=== PATIENT | male | born 1990 | race Hispanic/Latino ===

== ENCOUNTER 2018-02-19 11:14 | Emergency (ER) | payer SELFPAY ==
[2018-02-19] MEDS ORDERED: ISOVUE-370 76%-LOCM 1 ML ONE (11:32)
[2018-02-19 12:05] LABS: Bilirubin Negative (Negative); Blood, Urine Negative (Negative); Clarity CLEAR (Clear); Glucose, Urine (Dipstick) Negative (Negative); Leukocyte Negative (Negative); Nitrite Negative (Negative); Protein, Urine (Dipstick) Trace mg/dL (Neg-Trace); Specific Gravity, Urine 1.029 (1.002-1.036); Urobilinogen 0.2 mg/dL (0.2-1.0)
[2018-02-19 12:38] LABS: #Eosinphils 0.1 thou/uL (0.0-0.7); #Lymphocytes 1.8 thou/uL (1.20-3.40); #Monocytes 0.6 thou/uL (0.11-0.59); #Neutrophils 4.7 thou/uL (1.40-6.50); %Basophils 0.3 % (0.0-1.0); %Lymphocytes 24.9 % (21.0-51.0); %Monocytes 8.1 % (0.0-10.0); %Neutrophils 64.7 % (42.0-75.0); Hemoglobin 15.3 g/dL (14.0-18.0); Mean Corpuscular HGB CONC 32.7 g/dL (32.0-36.0); Mean Corpuscular Hemoglobin 29.2 pg (27.0-31.0); Mean Corpuscular Volume 89.3 fL (78.0-98.0); Mean Platelet Volume 8.5 fL (7.4-10.4); Platelet Count 180 thou/uL (130-400); RBC Distribution Width 10.9 % (11.5-14.5); Red Blood Cell (RBC) Count 5.24 mill/uL (4.70-6.10); White Blood Cell (WBC) Count 7.3 thou/uL (4.8-10.8)
[2018-02-19 12:45] LABS: ALT (SGPT) 74 U/L (8-55); AST (SGOT) 40 U/L (5-34); Albumin 4.8 g/dL (3.5-5.0); Alkaline Phosphatase 99 U/L (40-150); Anion Gap 15 mmol/L (10-20); BUN (Urea Nitrogen) 21 mg/dL (8.9-20.6); Calc. Creatinine Clearance 0 mL/min (70-130); Calcium 9.8 mg/dL (7.8-10.44); Carbon Dioxide 23 mmol/L (22-29); Chloride 99 mmol/L (98-107); Estimated GFR-MDRD Greater than 90; Globulin 3.5 g/dL (2.4-3.5); Glucose 75 mg/dL (70-105); Lipase 18 U/L (8-78); Potassium 3.6 mmol/L (3.5-5.1); Protein, Total 8.3 g/dL (6.0-8.3); Sodium 133 mmol/L (136-145)
--- NOTE | 2018-02-19 18:48 | CT ---
CT ABDOMEN AND PELVIS WITH CONTRAST: 02/19/18 HISTORY: Abdominal pain. COMPARISON: None. FINDINGS: Lung bases are clear. no pericardial effusion. Likely diffuse hepatic steatosis. No dilated loops of large or large or small bowel. No free intraperitoneal gas or fluid. The appendix is visualized and i s normal. The aortoiliac contour is nonaneurysmal. No retroperitoneal adenopathy. No hydronephrosis. Spleen is unremarkable as well as the pancreas. Mild degenerative changes of both hips. Lumbosacral transitional vertebrae with abnormal articulation . Enlarged right L5 transverse process with the sacrum. IMPRESSION: No acute inflammatory process in the abdomen or pelvis. POS: [facility]
== END 2018-02-19 18:10 | disposition home or self-care (01) ==
LOC: ERS 11:14
DX: R10.30 Lower abdominal pain, unspecified (principal)
CPT/HCPCS: 36415; 74177; 80053; 81003; 83690; 85025

== ENCOUNTER 2019-02-17 23:47 | Inpatient (IN) | payer OTHER, SELFPAY ==
[2019-02-18 00:14] LABS: #Basophils 0.1 thou/uL (0.0-0.2); #Eosinphils 0.2 thou/uL (0.0-0.7); #Monocytes 0.6 thou/uL (0.11-0.59); #Neutrophils 7.3 thou/uL (1.40-6.50); %Basophils 0.7 % (0.0-1.0); %Eosinophils 1.8 % (0.0-10.0); %Lymphocytes 19.7 % (21.0-51.0); %Monocytes 6.1 % (0.0-10.0); %Neutrophils 71.8 % (42.0-75.0); Hemoglobin 15.1 g/dL (14.0-18.0); Mean Corpuscular HGB CONC 36.1 g/dL (32.0-36.0); Mean Corpuscular Hemoglobin 32.4 pg (27.0-31.0); Mean Corpuscular Volume 89.7 fL (78.0-98.0); Platelet Count 185 thou/uL (130-400); Red Blood Cell (RBC) Count 4.65 mill/uL (4.70-6.10); White Blood Cell (WBC) Count 10.2 thou/uL (4.8-10.8)
[2019-02-18 00:34] LABS: ALT (SGPT) 40 U/L (8-55); AST (SGOT) 24 U/L (5-34); Albumin 4.6 g/dL (3.5-5.0); Alkaline Phosphatase 89 U/L (40-150); Anion Gap 13 mmol/L (10-20); BUN (Urea Nitrogen) 17 mg/dL (8.9-20.6); Bilirubin, Total 0.5 mg/dL (0.2-1.2); Calc. Creatinine Clearance 0 mL/min (70-130); Calcium 9.8 mg/dL (7.8-10.44); Carbon Dioxide 26 mmol/L (22-29); Chloride 99 mmol/L (98-107); Estimated GFR-MDRD Greater than 90; Glucose 101 mg/dL (70-105); Lipase 10 U/L (8-78); Potassium 3.6 mmol/L (3.5-5.1); Protein, Total 7.6 g/dL (6.0-8.3); Sodium 134 mmol/L (136-145)
[2019-02-18 00:39] LABS: Bilirubin Negative (Negative); Blood, Urine Negative (Negative); Clarity Clear (Clear); Glucose, Urine (Dipstick) Normal (Negative); Leukocyte Negative Leu/uL (Negative); Nitrite Negative (Negative); Protein, Urine (Dipstick) Negative (Neg-Trace); Urobilinogen Normal mg/dL (Less than 2)
[2019-02-18] MEDS ORDERED: Ondansetron PF 4 MG/2 ML Vial ONE (03:00)
[2019-02-18] MEDS ORDERED: Lidocaine Viscous Sol 2% 15 ml UD Cup ONE (04:23)
[2019-02-18] MEDS ORDERED: Mag-Al 1200 mg/1200 mg/30 ML UDCUP ONE (04:23)
[2019-02-18] MEDS ORDERED: Ketorolac Tromethamine 30 MG/ML VIAL ONE (04:26)
--- NOTE | 2019-02-18 07:38 | HP ---
HISTORY OF PRESENT ILLNESS: Pop Mcguire is a 28-year-old male, who works in construction, , has 3 children, who presents with 36-hour to 40-hour history of epigastric left upper quadrant pain, nausea, and vomiting. He has been seen in the emergency room, evaluated with a white count of 10 and hemoglobin 15. Basic metabolic profile normal, except for a sodium of 134. CAT scan obtained revealing changes consistent with a bowel obstruction, possible internal hernia. He is still having pain. NG tube had been placed without 400 output. Plan is for diagnostic laparoscopy, possible laparotomy is indicated. Power Driven Brush Maker phone used. Risks and benefits discussed. ALLERGIES: NONE. TOBACCO: None. ALCOHOL: Socially. MEDICATIONS: None routinely. PAST SURGICAL HISTORY: Noncontributory. PAST MEDICAL HISTORY: Noncontributory. REVIEW OF SYSTEMS: Ten-point noncontributory. PHYSICAL EXAMINATION: VITAL SIGNS: Blood pressure 134/68, respiratory rate 18, heart rate 86. HEAD, EYES, EARS, NOSE, AND THROAT: Unremarkable. LUNGS: Clear to auscultation. CARDIAC: Regular rate and rhythm without murmur or gallop. ABDOMEN: Soft. Tenderness in the upper abdomen with mild guarding. Occasional bowel sounds. EXTREMITIES: Unremarkable. No ankle edema. Palpable pedal pulses. LYMPHATIC: No adenopathy in neck, axilla, or groins. NEUROLOGICAL: Intact without focal deficit. LABORATORY DATA: Sodium 134, potassium 3.6, carbon dioxide 26, glucose 101, bilirubin 0.5. White count 10 and hemoglobin 15. ASSESSMENT AND PLAN: Bowel obstruction with internal hernia suggested by CAT scan. We would recommend laparoscopy, possible laparotomy. Risks of infection, bleeding, reoperation, bowel resection, anastomotic leak, unlikely blood transfusion discussed, questions answered using the sleeve maker phone. Job ID: [id number]
[2019-02-18] MEDS ORDERED: Morphine 4 MG/ML VIAL IV PRN (07:42)
[2019-02-18] MEDS ORDERED: Ketorolac Tromethamine 30 MG/ML VIAL IVP PRN ×2 (07:43→12:07)
[2019-02-18] MEDS ORDERED: Ketorolac Tromethamine 30 MG/ML VIAL IVP SCH (07:45)
[2019-02-18] MEDS ORDERED: Lactated Ringer's 1,000 ML IV SCH ×2 (07:45→13:00)
[2019-02-18] MEDS ORDERED: Acetaminophen 1,000 MG in Premix Bag 1 BAG IVPB SCH (07:45)
[2019-02-18] MEDS ORDERED: Meropenem 2 GM, Admixture Fee 1 EACH in Sodium Chloride 0.9% 100 ML IVPB SCH (07:45)
--- NOTE | 2019-02-18 08:16 | CT ---
PRELIMINARY REPORT/[facility]/EMERGENCY AFTER HOURS PROCEDURE: Addendum created by Humza Anderson MD on 02/18/2019 4:50 AM Central Time ([place] & [place]) THIS REPORT CONTA INS FINDINGS THAT MAY BE CRITICAL TO PATIENT CARE. The findings were verbally communicated via teleph one conference with ISSAC WEBER at 4:50 AM CDT on 02/18/2019. The findings were acknowledged and und erstood. Initial Report created on 02/18/2019 4:46 AM Central Time ([place] & [place]) EXAM: CT Abdomen and Pelvis With Contrast EXAM DATE/TIME: 02/18/2019 3:25 AM CLINICAL HISTORY: 28 years old, male; Abdominal pain; Generalized; Patient HX: , 28 yo m with no pmh here for abd pain. Started last night, associated with nausea. Passing gas, having bm. Doesn't think it is constipation . Has been taking advil (unknown dosage) recently for headaches, reports dark colored stools. TECHNIQUE: Imaging protocol: Axial computed tomography images of the abdomen and pelvis with intravenous contras t. Coronal and sagittal reformatted images were created and reviewed. COMPARISON: No relevant prior studies available. FINDINGS: Lungs: The visualized portions of the lung bases are normal. Liver: There are no focal liver lesions identified. Gallbladder and bile ducts: The gallbladder is normal. There is no evidence of biliary ductal dilatio n. Pancreas: The pancreas appears normal. No ductal dilatation. Spleen: The spleen is normal. Adrenals: The adrenal glands are normal. Kidneys and ureters: The kidneys appear normal. No hydronephrosis. Stomach and bowel: The stomach is normal. The colon is normal. There are dilated loops of small bowel in the left abdomen measuring up to 3.3 cm in diameter. There is collapse of the bowel within the le ft abdomen both proximal and distal to the dilated loops of bowel raising the possibility of closed-l oop obstruction and/or internal hernia. There is also subtle small bowel wall edema. Appendix: No evidence of appendicitis. Intraperitoneal space: Normal. No free air. No significant fluid collection. Vasculature: Normal. No abdominal aortic aneurysm. Lymph nodes: Normal. No enlarged lymph nodes. Bladder: Unremarkable as visualized. Reproductive: The prostate gland and seminal vesicles are normal. Bones/joints: No acute fracture. No dislocation. Soft tissues: Unremarkable. IMPRESSION: Small bowel obstruction with collapse in the left upper quadrant; possibly closed loop and/or related to internal hernia. Thank you for allowing us to participate in the care of your patient. Dictated and Authenticated by: Humza Anderson MD 02/18/2019 4:46 AM Central Time ([place] & [place]) FINAL REPORT ABDOMEN CT WITH CONTRAST PELVIC CT WITH CONTRAST: Date: 02/18/19 COMPARISON: 02/19/18. HISTORY: Dark stool. Pain. FINDINGS: Lung bases are clear. Hepatic steatosis. Appropriate enhancement of the solid organs. No mesenteric m ass, lymphadenopathy, free air, or free fluid. Symmetric enhancement of the kidneys. No obstructive uropathy. Limited evaluation of the alimentary canal by the lack of oral contrast. There are fluid-filled proxi mal small bowel loops. Correlate for possible small bowel obstruction. Distal small bowel loops are d ecompressed. Ileocecal junction is unremarkable. Scattered fecal material in a nondistended, nondilat ed colon. Diverticulosis, without evidence of diverticulitis. CT PELVIS: No acute abnormality. IMPRESSION: This report is in agreement with the preliminary report by [facility]. Small bowel obstruction involving pr oximal small bowel loops. Correlate for closed-loop obstruction versus an internal hernia. General vicente rgical consultation is recommended. POS: [facility]
--- NOTE | 2019-02-18 08:44 | RAD ---
ONE VIEW ABDOMEN: HISTORY: NG tube placement. FINDINGS: Nasogastric tube terminates in the left upper quadrant. IMPRESSION: Nasogastric tube terminating in the left upper quadrant. POS: [facility]
[2019-02-18] MEDS ORDERED: Fentanyl 100 MCG/2 ML VIAL ONE ×2 (08:58→11:10)
[2019-02-18] MEDS ORDERED: Pantoprazole 40 MG VIAL IVP SCH (09:00)
[2019-02-18 09:10] VITALS: BMI 25.8
[2019-02-18] MEDS ORDERED: Famotidine/PF 20 mg/2ml Vial ONE (09:18)
[2019-02-18] MEDS ORDERED: Bupivacaine HCl 0.5%/Epinephrine 1:200,000/PF 30 ml Vial ONE (10:40)
[2019-02-18] MEDS ORDERED: ISOVUE-370 76%-LOCM 1 ML ONE (10:48)
[2019-02-18] MEDS ORDERED: Scopolamine 1.5 mg/72 hour Patch ONE (11:10)
[2019-02-18] MEDS ORDERED: Acetaminophen 1,000 MG in Premix Bag 1 BAG IVPB PRN (12:00)
[2019-02-18] MEDS ORDERED: Ondansetron HCl/PF 4 MG/2 ML Vial IVP PRN (12:07)
[2019-02-18] MEDS ORDERED: Promethazine HCl 25 MG/ML VIAL IM PRN (12:07)
[2019-02-18] MEDS ORDERED: HYDROmorphone 2 MG/ML VIAL SLOW IVP PRN (12:07)
[2019-02-18] MEDS ORDERED: Promethazine HCl 25 MG/ML VIAL SLOW IVP PRN (12:07)
[2019-02-18] MEDS ORDERED: Meperidine HCl/PF 25 MG/ML VIAL SLOW IVP PRN (12:07)
--- NOTE | 2019-02-18 12:49 | OP ---
DATE OF PROCEDURE: 02/18/2019 PREOPERATIVE DIAGNOSIS: Small bowel obstruction with internal hernia by CAT scan. POSTOPERATIVE DIAGNOSES: Abdominal pain of uncertain etiology. No evidence of mechanical bowel obstruction. Globular appendix till end, precipitated appendectomy. PROCEDURE PERFORMED: Diagnostic laparoscopy, laparoscopic appendectomy. FINDINGS: Normal cecum, ileum, small bowel and its entirety, the ligament of Treitz. No mechanical obstruction. ANESTHESIA: General, local 0.5% Marcaine with epinephrine 30 mL. DESCRIPTION OF PROCEDURE: The patient was taken to the operating room, where under general anesthesia, Iniguez catheter was placed at the beginning of the procedure and removed at the end. Abdomen was prepared with ChloraPrep and draped in routine fashion. Local anesthetic was infiltrated in the skin and subcutaneous tissue about the operative site. Left lateral subcostal incision was made. Pneumoperitoneum to 15 mmHg was obtained with a Veress needle, replaced with a 5 port, where the laparoscope was inserted. Remainder of the ports placed under laparoscopic visualization. Left lateral mid abdominal incision was made and a 5 port placed. Left lower quadrant lateral abdominal incision was made and the 5 port placed. Small bowel was inspected from the cecum, terminal ileum proximally, the ligament of Treitz, although [id number] dilated. There was no mechanical obstruction. CAT scan was wrong. It was false-positive CAT scan. Into the appendix, there was noted to be globular, thus a laparoscopic appendectomy undertaken dividing the mesoappendix down to the stump of the appendix, divided with Endo CARMEN blue load stapler. Stapled cecal stump was hemostatic and secured. His appendix removed in 2 fragments, submitted to Pathology. Good hemostasis assured. Irrigant and pneumoperitoneum evacuated after a 12 mm port, which had replaced the midlateral 5 mm port site. Fascia was approximated with 0 Vicryl GraNee needle. All instrument was removed and all skin incisions were approximated with interrupted subdermal 4-0 Monocryl and Muir glue applied. Job ID: [id number]
[2019-02-18] MEDS ORDERED: traMADol HCl 50 MG TAB PO PRN ×2 (12:57)
[2019-02-18] MEDS ORDERED: Acetaminophen 500 MG TAB PO PRN (12:57)
[2019-02-18] MEDS ORDERED: Ibuprofen 600 MG TAB PO PRN (12:57)
[2019-02-18 13:55] VITALS: TEMP 98.5
[2019-02-18 16:46] VITALS: BP 119/67
--- NOTE | 2019-02-19 03:29 | DIS ---
DATE OF ADMISSION: 02/18/2019 DATE OF DISCHARGE: 02/18/2019 DISCHARGE DIAGNOSES: Abdominal pain of uncertain etiology. CAT scan suggested bowel obstruction with possible internal hernia in a patient without prior operation. Abnormal appearing appendix with a globular end found on laparoscopy. PROCEDURES: CAT scan of the abdomen and pelvis in the emergency room. Diagnostic laparoscopy, running the entire small bowel, cecum, and appendix noted to be normal except for the end of the appendix being globular, thus it was removed and laparoscopic appendectomy completed. Postoperatively, his NG tube was removed and he convalesced, tolerated his diet, and he is discharged home with Tylenol, Advil for pain. Follow up in my office in 2 to 3 weeks. HISTORY: A 28-year-old male patient with 36-hour history of abdominal pain, presented to the emergency room. CAT scan suggested a bowel obstruction, internal hernia. Thus, he was hydrated, given intravenous antibiotics, taken to the operating room where diagnostic laparoscopy revealed entirely normal small bowel without mechanical obstruction. Indeed, the appendix appeared globular. Laparoscopic appendectomy performed. Postop, the patient's NG tube removed. He has tolerated his diet and discharged home. Follow up in my office in 2 to 3 weeks. Job ID: [id number]
== END 2019-02-18 18:00 | disposition home or self-care (01) | DRG 343 ==
LOC: ERS 23:47 → 3SE 02-18 07:43
PROVIDERS: ADMIT Specialist; ATTEND Specialist
PROC: 0DTJ4ZZ Resection of Appendix, Percutaneous Endoscopic Approach (ICD-10-PCS; principal; 2019-02-18)
DX: K38.8 Other specified diseases of appendix (principal)
CPT/HCPCS: 36415; 74018; 74177; 80053; 81003; 82274; 83690; 85025; 88304; C9113; J0131; J0500; J0670; J1885; J2405; J3010; Q9966; S0028